=== PATIENT | male | born 1930 | race Caucasian/White ===

== ENCOUNTER → 2016-08-13 | Outpatient (CLI) | payer OTHER | END | disposition home or self-care (01) | LOC: PCVCCLINIC 10:00 | PROVIDERS: ATTEND Internal Medicine Cardiovascular Disease | DX: I48.91 Unspecified atrial fibrillation (principal); R00.1 Bradycardia, unspecified; E78.00 Pure hypercholesterolemia, unspecified; I10 Essential (primary) hypertension; R26.81 Unsteadiness on feet | CPT/HCPCS: 93005; G0463 ==

== ENCOUNTER → 2016-09-07 | Outpatient (CLI) | payer OTHER | END | disposition home or self-care (01) | LOC: PCVCCLINIC 11:24 | PROVIDERS: ATTEND Internal Medicine Cardiovascular Disease | DX: I48.91 Unspecified atrial fibrillation (principal); R00.1 Bradycardia, unspecified; I10 Essential (primary) hypertension; E78.00 Pure hypercholesterolemia, unspecified | CPT/HCPCS: 85610; 93005; G0463 ==

== ENCOUNTER → 2016-09-21 | Outpatient (CLI) | payer OTHER | END | disposition home or self-care (01) | LOC: PCVCCLINIC 09:02 | PROVIDERS: ATTEND Internal Medicine Cardiovascular Disease | DX: I48.91 Unspecified atrial fibrillation (principal) | CPT/HCPCS: 85610 ==

== ENCOUNTER → 2016-09-28 | Outpatient (CLI) | payer OTHER | END | disposition home or self-care (01) | LOC: PCVCCLINIC 11:52 | PROVIDERS: ATTEND Internal Medicine Cardiovascular Disease | DX: I48.91 Unspecified atrial fibrillation (principal) | CPT/HCPCS: 85610; G0463 ==

== ENCOUNTER → 2016-10-05 | Outpatient (CLI) | payer OTHER | END | disposition home or self-care (01) | LOC: PCVCCLINIC 08:27 | PROVIDERS: ATTEND Internal Medicine Cardiovascular Disease | DX: I48.91 Unspecified atrial fibrillation (principal); I10 Essential (primary) hypertension | CPT/HCPCS: 85610; G0463 ==

== ENCOUNTER → 2016-10-19 | Outpatient (CLI) | payer OTHER | END | disposition home or self-care (01) | LOC: PCVCCLINIC 08:52 | PROVIDERS: ATTEND Internal Medicine Cardiovascular Disease | DX: I48.91 Unspecified atrial fibrillation (principal); R00.1 Bradycardia, unspecified | CPT/HCPCS: 85610; G0463 ==

== ENCOUNTER → 2016-11-19 | Outpatient (CLI) | payer OTHER | END | disposition home or self-care (01) | LOC: PCVCCLINIC 07:55 | PROVIDERS: ATTEND Internal Medicine Cardiovascular Disease | DX: I48.91 Unspecified atrial fibrillation (principal) | CPT/HCPCS: 85610 ==

== ENCOUNTER → 2016-12-17 | Outpatient (CLI) | payer OTHER | END | disposition home or self-care (01) | LOC: PCVCCLINIC 08:50 | PROVIDERS: ATTEND Internal Medicine Cardiovascular Disease | DX: I48.92 Unspecified atrial flutter (principal); Z79.01 Long term (current) use of anticoagulants | CPT/HCPCS: 85610 ==

== ENCOUNTER → 2017-01-17 | Outpatient (CLI) | payer OTHER | END | disposition home or self-care (01) | LOC: PCVCCLINIC 08:54 | PROVIDERS: ATTEND Internal Medicine Cardiovascular Disease | DX: I48.92 Unspecified atrial flutter (principal); E11.9 Type 2 diabetes mellitus without complications; Z79.01 Long term (current) use of anticoagulants; Z79.84 Long term (current) use of oral hypoglycemic drugs | CPT/HCPCS: 85610 ==

== ENCOUNTER → 2017-02-16 | Outpatient (CLI) | payer OTHER ==
--- NOTE | 2017-02-16 10:01 | PCVCIMAG ---
APPROVED REPORT Study performed: 02/16/2017 08:47:48 EXAM: Comprehensive 2D, Doppler, and color-flow Echocardiogram Patient Location: Echo lab Status: routine Other Information Study Quality: Good Risk Factors: Cardiac Risk Factors: Diabetes (insulin) Indications Atrial Fibrillation Bradycardia Dyspnea 2D Dimensions IVSd: 9.31 (7-11mm)LVOT Diam: 23.83 (18-24mm) LVDd: 56.56 mm PWd: 8.85 (7-11mm)Ascending Ao: 39.12 (22-36mm) LVDs: 33.33 (25-40mm) Left Atrium: 50.78 (27-40mm) Aortic Root: 32.05 mm LV Single Plane 4CH: 57.34 % LV Single Plane 2CH: 63.84 %Mariee's LVEF: 60.59 % Biplane EF: 61.3 % Volumes Left Atrial Volume (Systole) Single Plane 4CH: 157.80 mLSingle Plane 2CH: 133.40 mL LA ESV Index: 65.00 mL/m2 Aortic Valve AoV Peak Darryl.: 1.56 m/s AO Peak Gr.: 9.95 mmHgLVOT Max P.18 mmHg LVOT Max V: 0.86 m/s HARINI Vmax: 2.45 cm2 AI Vmax: 4.43 m/s AI [place]: 1.67 m/s2 AI PHT: 785.25 ms Mitral Valve MV E Max Darryl.: 1.21 m/s MV Max Darryl.: 5.43 m/s MV Mean Darryl.: 4.38 m/s MV PHT: 48.18 ms MVA (PHT): 4.57 cm2 IVRT: 83.04 ms TDI E/Lateral E': 11.00E/Medial E': 12.10 Medial E' Darryl.: 0.10 m/s Lateral E' Darryl.: 0.11 m/s Pulmonary Valve PV Peak Darryl.: 0.97 m/sPV Peak Gr.: 3.79 mmHg Tricuspid Valve TR Peak Darryl.: 2.72 m/s TR Peak Gr.: 29.68 mmHg TV Vmax: 0.72 m/sPA Pressure: 37.00 mmHg Left Ventricle Left ventricle is at the upper limits of normal. There is normal LV segmental wall motion. There is normal left ventricular wall thickness. Left ventricular systolic function is normal. The left ventricular ejection fraction is within the normal range. LVEF is 55-60%. This study is not technically sufficient to allow evaluation of the LV diastolic function due to atrial fibrillation. Right Ventricle The right ventricle is normal size. The right ventricular systolic function is normal. Atria Left atrium is severely dilated. Right atrium is severely dilated. Aortic Valve Aortic valve is trileaflet. Mild aortic valve sclerosis. Mild to moderate aortic regurgitation. There is no aortic valvular stenosis. Mitral Valve The mitral valve is normal in structure. Mild to moderate mitral regurgitation. No evidence of mitral valve stenosis. Tricuspid Valve The tricuspid valve is normal in structure. Mild tricuspid regurgitation with a PA pressure of 37mmHg. Pulmonic Valve The pulmonary valve is normal in structure. Mild to moderate pulmonic regurgitation. Great Vessels The aortic root is normal in size. IVC is normal in size and collapses with >50% inspiration Pericardium There is no pericardial effusion. <Conclusion> Left ventricle is at the upper limits of normal. Left ventricular systolic function is normal. The right ventricle is normal size. Left atrium is severely dilated. Right atrium is severely dilated. Mild to moderate aortic regurgitation. Mild to moderate mitral regurgitation. Mild tricuspid regurgitation with a PA pressure of 37mmHg.
== END | disposition home or self-care (01) ==
LOC: PCVCIMAG 08:39
PROVIDERS: ATTEND Internal Medicine Cardiovascular Disease
DX: I37.1 Nonrheumatic pulmonary valve insufficiency (principal); I07.1 Rheumatic tricuspid insufficiency; I34.0 Nonrheumatic mitral (valve) insufficiency; I35.0 Nonrheumatic aortic (valve) stenosis; I48.91 Unspecified atrial fibrillation; I35.1 Nonrheumatic aortic (valve) insufficiency; I48.92 Unspecified atrial flutter; I10 Essential (primary) hypertension; E78.5 Hyperlipidemia, unspecified; E78.00 Pure hypercholesterolemia, unspecified; E11.9 Type 2 diabetes mellitus without complications; Z79.82 Long term (current) use of aspirin; Z79.01 Long term (current) use of anticoagulants; Z85.51 Personal history of malignant neoplasm of bladder; Z90.5 Acquired absence of kidney; Z87.891 Personal history of nicotine dependence
CPT/HCPCS: 85610; 93306; G0463

== ENCOUNTER → 2017-03-16 | Outpatient (CLI) | payer OTHER | END | disposition home or self-care (01) | LOC: PCVCCLINIC 08:37 | PROVIDERS: ATTEND Internal Medicine Cardiovascular Disease | DX: Z51.81 Encounter for therapeutic drug level monitoring (principal); I48.91 Unspecified atrial fibrillation; I48.92 Unspecified atrial flutter; E11.9 Type 2 diabetes mellitus without complications; Z79.82 Long term (current) use of aspirin; Z79.84 Long term (current) use of oral hypoglycemic drugs; Z79.01 Long term (current) use of anticoagulants | CPT/HCPCS: 85610 ==

== ENCOUNTER → 2017-04-13 | Outpatient (CLI) | payer OTHER | END | disposition home or self-care (01) | LOC: PCVCCLINIC 08:44 | PROVIDERS: ATTEND Internal Medicine Cardiovascular Disease | DX: Z51.81 Encounter for therapeutic drug level monitoring (principal); I48.91 Unspecified atrial fibrillation; I48.92 Unspecified atrial flutter; E11.9 Type 2 diabetes mellitus without complications; Z79.82 Long term (current) use of aspirin; Z79.01 Long term (current) use of anticoagulants | CPT/HCPCS: 85610 ==

== ENCOUNTER → 2017-05-13 | Outpatient (CLI) | payer OTHER | END | disposition home or self-care (01) | LOC: PCVCCLINIC 08:09 | PROVIDERS: ATTEND Internal Medicine Cardiovascular Disease | DX: Z51.81 Encounter for therapeutic drug level monitoring (principal); I48.92 Unspecified atrial flutter; Z79.01 Long term (current) use of anticoagulants | CPT/HCPCS: 85610 ==

== ENCOUNTER → 2017-06-27 | Outpatient (CLI) | payer OTHER | END | disposition home or self-care (01) | LOC: PCVCCLINIC 08:00 | PROVIDERS: ATTEND Internal Medicine Cardiovascular Disease | DX: Z51.81 Encounter for therapeutic drug level monitoring (principal); I48.92 Unspecified atrial flutter; E11.9 Type 2 diabetes mellitus without complications; Z79.01 Long term (current) use of anticoagulants | CPT/HCPCS: 85610 ==

== ENCOUNTER → 2017-07-04 | Outpatient (CLI) | payer OTHER | END | disposition home or self-care (01) | LOC: PCVCCLINIC 08:36 | PROVIDERS: ATTEND Internal Medicine Cardiovascular Disease | DX: Z51.81 Encounter for therapeutic drug level monitoring (principal); I48.92 Unspecified atrial flutter; E11.9 Type 2 diabetes mellitus without complications; Z79.01 Long term (current) use of anticoagulants | CPT/HCPCS: 85610 ==

== ENCOUNTER → 2017-07-20 | Outpatient (CLI) | payer OTHER | END | disposition home or self-care (01) | LOC: PCVCCLINIC 08:46 | PROVIDERS: ATTEND Internal Medicine Cardiovascular Disease | DX: Z51.81 Encounter for therapeutic drug level monitoring (principal); I48.92 Unspecified atrial flutter; I48.91 Unspecified atrial fibrillation; E11.9 Type 2 diabetes mellitus without complications; Z79.01 Long term (current) use of anticoagulants | CPT/HCPCS: 85610 ==

== ENCOUNTER → 2017-08-19 | Outpatient (CLI) | payer OTHER | END | disposition home or self-care (01) | LOC: PCVCCLINIC 09:37 | DX: I48.91 Unspecified atrial fibrillation (principal); I10 Essential (primary) hypertension; R60.9 Edema, unspecified; E78.00 Pure hypercholesterolemia, unspecified; R94.31 Abnormal electrocardiogram [ECG] [EKG]; Z87.891 Personal history of nicotine dependence | CPT/HCPCS: 80061; 93005; G0463 ==

== ENCOUNTER → 2017-09-16 | Outpatient (CLI) | payer OTHER | END | disposition home or self-care (01) | LOC: PCVCCLINIC 08:31 | DX: Z51.81 Encounter for therapeutic drug level monitoring (principal); I48.92 Unspecified atrial flutter; I48.91 Unspecified atrial fibrillation; E11.9 Type 2 diabetes mellitus without complications; Z79.01 Long term (current) use of anticoagulants | CPT/HCPCS: 85610 ==

== ENCOUNTER → 2017-10-14 | Outpatient (CLI) | payer OTHER | END | disposition home or self-care (01) | LOC: PCVCCLINIC 08:17 | DX: Z51.81 Encounter for therapeutic drug level monitoring (principal); I48.92 Unspecified atrial flutter; I48.91 Unspecified atrial fibrillation; E11.9 Type 2 diabetes mellitus without complications; Z79.01 Long term (current) use of anticoagulants | CPT/HCPCS: 85610 ==

== ENCOUNTER → 2017-11-15 | Outpatient (CLI) | payer OTHER | END | disposition home or self-care (01) | LOC: PCVCCLINIC 09:34 | DX: Z51.81 Encounter for therapeutic drug level monitoring (principal); I48.92 Unspecified atrial flutter; E11.9 Type 2 diabetes mellitus without complications; I48.91 Unspecified atrial fibrillation; Z79.01 Long term (current) use of anticoagulants | CPT/HCPCS: 85610 ==

== ENCOUNTER → 2017-12-15 | Outpatient (CLI) | payer OTHER | END | disposition home or self-care (01) | LOC: PCVCCLINIC 10:14 | DX: Z51.81 Encounter for therapeutic drug level monitoring (principal); I48.92 Unspecified atrial flutter; E11.9 Type 2 diabetes mellitus without complications; Z79.01 Long term (current) use of anticoagulants | CPT/HCPCS: 85610 ==

== ENCOUNTER → 2018-01-13 | Outpatient (CLI) | payer OTHER | END | disposition home or self-care (01) | LOC: PCVCCLINIC 10:14 | DX: Z51.81 Encounter for therapeutic drug level monitoring (principal); I48.92 Unspecified atrial flutter; I48.91 Unspecified atrial fibrillation; E11.9 Type 2 diabetes mellitus without complications; Z79.01 Long term (current) use of anticoagulants | CPT/HCPCS: 85610 ==

== ENCOUNTER → 2018-02-10 | Outpatient (CLI) | payer OTHER | END | disposition home or self-care (01) | LOC: PCVCIMAG 09:42 | DX: I08.3 Combined rheumatic disorders of mitral, aortic and tricuspid valves (principal); I48.91 Unspecified atrial fibrillation; I10 Essential (primary) hypertension; R60.0 Localized edema | CPT/HCPCS: 93306 ==

== ENCOUNTER → 2018-02-24 | Outpatient (CLI) | payer OTHER | END | disposition home or self-care (01) | LOC: PCVCCLINIC 09:41 | DX: Z51.81 Encounter for therapeutic drug level monitoring (principal); I48.92 Unspecified atrial flutter; I48.91 Unspecified atrial fibrillation; E11.9 Type 2 diabetes mellitus without complications; Z79.01 Long term (current) use of anticoagulants | CPT/HCPCS: 85610 ==

== ENCOUNTER → 2018-03-24 | Outpatient (CLI) | payer OTHER | END | disposition home or self-care (01) | LOC: PCVCCLINIC 10:58 | PROVIDERS: ATTEND Internal Medicine Cardiovascular Disease | DX: Z51.81 Encounter for therapeutic drug level monitoring (principal); I48.92 Unspecified atrial flutter; E11.9 Type 2 diabetes mellitus without complications; Z79.01 Long term (current) use of anticoagulants; Z88.8 Allergy status to other drugs, medicaments and biological substances | CPT/HCPCS: 85610 ==

== ENCOUNTER → 2018-04-21 | Outpatient (CLI) | payer OTHER | END | disposition home or self-care (01) | LOC: PCVCCLINIC 09:31 | PROVIDERS: ATTEND Internal Medicine Cardiovascular Disease | DX: Z51.81 Encounter for therapeutic drug level monitoring (principal); I48.92 Unspecified atrial flutter; I48.91 Unspecified atrial fibrillation; E11.9 Type 2 diabetes mellitus without complications; Z79.01 Long term (current) use of anticoagulants | CPT/HCPCS: 85610 ==

== ENCOUNTER → 2018-05-19 | Outpatient (CLI) | payer OTHER | END | disposition home or self-care (01) | LOC: PCVCCLINIC 08:20 | PROVIDERS: ATTEND Internal Medicine Cardiovascular Disease | DX: Z51.81 Encounter for therapeutic drug level monitoring (principal); I48.92 Unspecified atrial flutter; I48.91 Unspecified atrial fibrillation; E11.9 Type 2 diabetes mellitus without complications; Z79.01 Long term (current) use of anticoagulants | CPT/HCPCS: 85610 ==

== ENCOUNTER → 2018-06-13 | Outpatient (CLI) | payer OTHER | END | disposition home or self-care (01) | LOC: PCVCCLINIC 09:30 | PROVIDERS: ATTEND Internal Medicine Cardiovascular Disease | DX: Z51.81 Encounter for therapeutic drug level monitoring (principal); I48.92 Unspecified atrial flutter; E11.9 Type 2 diabetes mellitus without complications; Z79.01 Long term (current) use of anticoagulants; Z88.8 Allergy status to other drugs, medicaments and biological substances | CPT/HCPCS: 36415; 85610 ==

== ENCOUNTER → 2018-07-12 | Outpatient (CLI) | payer OTHER | END | disposition home or self-care (01) | LOC: PCVCCLINIC 09:50 | PROVIDERS: ATTEND Internal Medicine Cardiovascular Disease | DX: Z51.81 Encounter for therapeutic drug level monitoring (principal); I48.92 Unspecified atrial flutter; E11.9 Type 2 diabetes mellitus without complications; Z79.01 Long term (current) use of anticoagulants; Z88.8 Allergy status to other drugs, medicaments and biological substances | CPT/HCPCS: 36415; 85610 ==

== ENCOUNTER → 2018-08-09 | Outpatient (CLI) | payer OTHER | END | disposition home or self-care (01) | LOC: PCVCCLINIC 09:36 | PROVIDERS: ATTEND Internal Medicine Cardiovascular Disease | DX: Z51.81 Encounter for therapeutic drug level monitoring (principal); I48.92 Unspecified atrial flutter; E11.9 Type 2 diabetes mellitus without complications; I10 Essential (primary) hypertension; Z88.8 Allergy status to other drugs, medicaments and biological substances; Z87.891 Personal history of nicotine dependence; Z79.01 Long term (current) use of anticoagulants | CPT/HCPCS: 36415; 85610 ==

== ENCOUNTER → 2018-10-04 | Outpatient (CLI) | payer OTHER | END | disposition home or self-care (01) | LOC: PCVCCLINIC 11:02 | PROVIDERS: ATTEND Internal Medicine Cardiovascular Disease | DX: Z51.81 Encounter for therapeutic drug level monitoring (principal); I48.91 Unspecified atrial fibrillation; I48.92 Unspecified atrial flutter; E11.9 Type 2 diabetes mellitus without complications; Z79.01 Long term (current) use of anticoagulants; Z88.5 Allergy status to narcotic agent | CPT/HCPCS: 36415; 85610 ==

== ENCOUNTER → 2018-11-08 | Outpatient (CLI) | payer OTHER | END | disposition home or self-care (01) | LOC: PCVCCLINIC 08:35 | PROVIDERS: ATTEND Internal Medicine Cardiovascular Disease | DX: Z51.81 Encounter for therapeutic drug level monitoring (principal); I48.91 Unspecified atrial fibrillation; E11.9 Type 2 diabetes mellitus without complications; Z88.1 Allergy status to other antibiotic agents; Z79.01 Long term (current) use of anticoagulants | CPT/HCPCS: 36415; 85610 ==

== ENCOUNTER → 2018-12-06 | Outpatient (CLI) | payer OTHER | END | disposition home or self-care (01) | LOC: PCVCCLINIC 08:00 | PROVIDERS: ATTEND Internal Medicine Cardiovascular Disease | DX: Z51.81 Encounter for therapeutic drug level monitoring (principal); I48.92 Unspecified atrial flutter; E11.9 Type 2 diabetes mellitus without complications; Z79.01 Long term (current) use of anticoagulants; Z88.8 Allergy status to other drugs, medicaments and biological substances | CPT/HCPCS: 36415; 85610 ==

== ENCOUNTER → 2019-01-03 | Outpatient (CLI) | payer OTHER | END | disposition home or self-care (01) | LOC: PCVCCLINIC 08:10 | PROVIDERS: ATTEND Internal Medicine Cardiovascular Disease | DX: Z51.81 Encounter for therapeutic drug level monitoring (principal); I48.92 Unspecified atrial flutter; E11.9 Type 2 diabetes mellitus without complications; Z88.8 Allergy status to other drugs, medicaments and biological substances | CPT/HCPCS: 36415; 85610 ==

== ENCOUNTER → 2019-03-06 | Outpatient (CLI) | payer OTHER | END | disposition home or self-care (01) | LOC: PCVCCLINIC 12:36 | PROVIDERS: ATTEND Internal Medicine Cardiovascular Disease | DX: I48.91 Unspecified atrial fibrillation (principal); I10 Essential (primary) hypertension; E78.00 Pure hypercholesterolemia, unspecified; R60.9 Edema, unspecified; Z79.01 Long term (current) use of anticoagulants; Z87.891 Personal history of nicotine dependence | CPT/HCPCS: 36415; 85610; 93005; G0463 ==

== ENCOUNTER → 2019-04-03 | Outpatient (CLI) | payer OTHER | END | disposition home or self-care (01) | LOC: PCVCCLINIC 08:30 | PROVIDERS: ATTEND Internal Medicine Cardiovascular Disease | DX: Z79.01 Long term (current) use of anticoagulants (principal) | CPT/HCPCS: 36415; 85610 ==

== ENCOUNTER → 2019-05-01 | Outpatient (CLI) | payer OTHER | END | disposition home or self-care (01) | LOC: PCVCCLINIC 09:00 | PROVIDERS: ATTEND Internal Medicine Cardiovascular Disease | DX: Z51.81 Encounter for therapeutic drug level monitoring (principal); I48.92 Unspecified atrial flutter; I48.91 Unspecified atrial fibrillation; E11.9 Type 2 diabetes mellitus without complications; Z79.01 Long term (current) use of anticoagulants; Z88.8 Allergy status to other drugs, medicaments and biological substances | CPT/HCPCS: 36415; 85610 ==

== ENCOUNTER → 2019-06-01 | Outpatient (CLI) | payer OTHER | END | disposition home or self-care (01) | LOC: PCVCCLINIC 15:02 | PROVIDERS: ATTEND Internal Medicine Cardiovascular Disease | DX: Z51.81 Encounter for therapeutic drug level monitoring (principal); I48.92 Unspecified atrial flutter; I48.91 Unspecified atrial fibrillation; E11.9 Type 2 diabetes mellitus without complications; E78.00 Pure hypercholesterolemia, unspecified; I10 Essential (primary) hypertension; Z90.5 Acquired absence of kidney; Z82.49 Family history of ischemic heart disease and other diseases of the circulatory system; Z87.891 Personal history of nicotine dependence; Z88.8 Allergy status to other drugs, medicaments and biological substances | CPT/HCPCS: 36415; 85610 ==

== ENCOUNTER → 2019-06-08 | Outpatient (CLI) | payer OTHER | END | disposition home or self-care (01) | LOC: PCVCCLINIC 08:00 | PROVIDERS: ATTEND Internal Medicine Cardiovascular Disease | DX: Z51.81 Encounter for therapeutic drug level monitoring (principal); I48.92 Unspecified atrial flutter; I48.91 Unspecified atrial fibrillation; E11.9 Type 2 diabetes mellitus without complications; Z79.01 Long term (current) use of anticoagulants | CPT/HCPCS: 36415; 85610 ==

== ENCOUNTER → 2019-06-20 | Outpatient (CLI) | payer OTHER | END | disposition home or self-care (01) | LOC: PCVCCLINIC 08:00 | PROVIDERS: ATTEND Internal Medicine Cardiovascular Disease | DX: Z51.81 Encounter for therapeutic drug level monitoring (principal); I48.91 Unspecified atrial fibrillation; I48.92 Unspecified atrial flutter; E78.00 Pure hypercholesterolemia, unspecified; I10 Essential (primary) hypertension; E11.9 Type 2 diabetes mellitus without complications; Z87.891 Personal history of nicotine dependence; Z88.8 Allergy status to other drugs, medicaments and biological substances; Z79.01 Long term (current) use of anticoagulants | CPT/HCPCS: 36415; 85610 ==